=== PATIENT | female | born 1990 | race African-American/Black ===

== ENCOUNTER 2019-08-26 19:06 | Emergency (ER) | payer OTHER, SELFPAY ==
[2019-08-26] VITALS (7 sets, daily range): BP systolic 96–115; BP diastolic 55–72; PULSE 68–87; RESP 13–25; TEMP 36.6; O2SAT 96–100; BMI 37.8
--- NOTE | 2019-08-26 19:18 | DI.RAD.S_ITS ---
PROCEDURE: XR CHEST 1V INDICATIONS: chest pain TECHNIQUE: One view of the chest was acquired. COMPARISON: Outside Film, CT, CT CHEST WITHOUT CONTRAST, 04/08/2019, 14:41. Outside Film, CT, CT ANGIO CHEST PE, 06/14/2019, 18:45. FINDINGS: Surgical changes and devices: None. Lungs and pleura: Bilateral reticular and groundglass infiltrates. No pleural effusions or pneumothorax. Mediastinum: Mediastinal contours appear normal. Heart size is normal. Bones and chest wall: No suspicious bony lesions. Overlying soft tissues appear unremarkable. IMPRESSION: Bilateral reticular and groundglass infiltrates. Differential diagnoses include infection such as atypical pneumonia, information such as sarcoidosis, hypersensitivity pneumonitis and noncardiogenic pulmonary edema. Recommend clinical correlation. Dictated by: Cleveland Patel M.D. on 08/26/2019 at 20:00 Approved by: Cleveland Patel M.D. on 08/26/2019 at 20:04
[2019-08-26 19:38] LABS: Add Manual Diff / Slide Review NO; Basophils Absolute Auto 100 /uL (0-100); Basophils Percent Auto 0.5 % (0-2); Eosinophils Absolute Auto 0 /uL (0-450); Hemoglobin 12.7 g/dL (12.0-16.0); Lymphocytes Absolute Auto 900 /uL (1100-4500); Lymphocytes Percent Auto 7.5 % (25-40); Mean Corpuscular HGB Conc 33.5 % (30-36); Mean Corpuscular Hemoglobin 27.5 PG (26-34); Mean Corpuscular Volume 82.2 fL (80-100); Monocytes Absolute Auto 400 /uL (0-900); Monocytes Percent Auto 3.1 % (3-14); Neutrophils Absolute Auto 10300 /uL (1500-7000); Neutrophils Percent Auto 88.9 % (50-75); Platelet Count 312 X10^3/uL (150-400); Red Blood Cell Count 4.63 X10^6/uL (4.0-5.2); Red Cell Distribution Width 15.8 % (11.6-14.8); White Blood Cell Count 11.6 X10^3/uL (4.5-11.0)
[2019-08-26 19:45] LABS: INR 1.1 (0.9-1.3); Prothrombin Time 12.2 SECONDS (10.1-12.7)
[2019-08-26 19:48] LABS: PTT Partial Thromboplastin Tim 28 SECONDS (26.4-36.2)
[2019-08-26 19:56] LABS: Alanine Aminotransferase 30 IU/L (<35); Albumin 4.2 g/dL (3.5-5.0); Albumin Globulin Ratio 1.1 (1.0-2.8); Alkaline Phosphatase 54 U/L (38-126); Aspartate Aminotransferase 28 IU/L (14-36); BUN Creatinine Ratio 18.3 (6-22); Bilirubin Total 0.3 mg/dL (0.2-1.3); Blood Urea Nitrogen 22 mg/dL (7-17); Calcium 9.8 mg/dL (8.4-10.2); Carbon Dioxide 27 mmol/L (22-32); Chloride 101 mmol/L (98-107); Creatine Kinase 46 U/L (30-135); Estimated Glomerular Filt Rate 52.7 mL/min (>60); Globulin 3.8 g/dL (1.7-4.1); Glucose 113 mg/dL (70-100); HEMOLYSIS < 15 (0-50); Lipase 171 U/L (23-300); Potassium 4.7 mmol/L (3.4-5.1); Sodium 137 mmol/L (137-145)
[2019-08-26 20:07] LABS: Troponin I < 0.012 ng/mL (0.01-0.034)
--- NOTE | 2019-08-26 20:24 | ED.CHESTPAIN ---
HPI - Chest Pain General Chief Complaint: Chest Pain Stated Complaint: states had a abnormal EKG Time Seen by Provider: 08/26/19 19:25 Source: patient Mode of arrival: Ambulatory Limitations: no limitations History of Present Illness HPI narrative: 28-year-old female. Is a known history of chronic lung disease to include what she states is an interstitial pulmonary fibrosis. Is under the care of pulmonology. Is scheduled for an echocardiogram next week. Went to see her primary provider 2 days ago for left-sided chest pain. She states that it was worsening when she was up moving around. She also states she has been burping quite a bit which she states does relieve the symptoms. No change with palpation or movement of her arm. She states that when she went to her primary provider she was told that she had a ?abnormal EKG ?she was told that if her symptoms changed or worsen that she should come to the emergency department for evaluation. She states she is here today for continued symptoms she states that it has not worsened since Thursday just has not got any better. Today was the 1st day that she had arrived to the emergency department Related Data Allergies Allergy/AdvReac Type Severity Reaction Status Date / Time No Known Drug Allergies Allergy Verified 08/26/19 19:18 Review of Systems Constitutional Constitutional: Denies fever(s) and Denies headache(s) ENT Ears, Nose, Mouth, and Throat: Denies headache(s) Cardiovascular Cardiovascular: Reports chest pain Respiratory Comments: No change in baseline respiratory status Gastrointestinal Gastrointestinal: Denies abdominal pain, Denies nausea and Denies vomiting Integumentary/Breasts Skin/Breast: Denies rash Neurologic Neurologic: Denies behavioral changes and Denies headache(s) Psychiatric Psychiatric: Denies behavioral changes Hematologic/Lymphatic Hematologic/Lymphatic: Denies easy bleeding and Denies easy bruising Patient History Medical History Pulmonary fibrosis (Acute) Social History Smoking Status: Unknown if ever smoked Smoking Status: Unknown if ever smoked alcohol intake frequency: holidays/special occasions only Substance Use Type: does not use Exam Initial Vital Signs Initial Vital Signs: Vital Signs Temperature 97.9 F 08/26/19 19:18 Pulse Rate 87 08/26/19 19:18 Respiratory Rate 15 08/26/19 19:18 Blood Pressure 115/72 08/26/19 19:18 Pulse Oximetry 96 08/26/19 19:18 Const General: cooperative, healthy appearing, comfortable and well developed Limitations: mental status not altered Resp Effort & Inspection: normal respiratory effort Auscultation: clear to auscultation bilaterally Cardio Rate: regular rate Rhythm: regular rhythm GI Inspection: non-distended Palpation: soft Skin Lesions: no lesions Rashes: no rashes Neuro General: alert and awake Cognition: normal cognition Speech: speech normal Extrem General: normal to inspection and capillary refill normal Psych Appearance: grossly normal and well kempt Scores GCS Eugene coma scale eye opening: Spontaneous Malou coma scale verbal response: Orientated Malou coma scale motor response: Obey commands Eugene coma scale total score: 15 HEART Score Heart Score history: Slightly Suspicious Heart Score EKG: Non-Specific repolarization disturbance Heart Score Age: < 45 years old Heart Score risk factors: No known risk factors Heart Score troponin: < or = to normal limit Heart Score Total: 1 Course Orders Ordered: ED Orders 08/26/19 19:18 XR chest 1V Stat EKG-12 Lead Stat 08/26/19 19:30 Complete Blood Count AUTO DIFF Stat Comprehensive Metabolic Panel Stat Lipase Stat Partial Thromboplastin Time Stat Prothrombin Time INR Stat Troponin & CK Cardiac Panel Stat 08/26/19 21:46 Troponin I Stat Vital Signs Vital signs: Vital Signs - 8 hr 08/26/19 19:18 08/26/19 20:00 08/26/19 20:30 Temperature 97.9 F Pulse Rate 87 70 70 Respiratory Rate 15 18 18 Blood Pressure 115/72 Blood Pressure [Right Arm] 98/60 100/65 Pulse Oximetry 96 98 99 08/26/19 21:00 08/26/19 21:48 08/26/19 22:30 Temperature Pulse Rate 73 80 68 Respiratory Rate 25 H 18 13 Blood Pressure Blood Pressure [Right Arm] 101/55 L 100/58 L 97/57 L Pulse Oximetry 99 99 100 08/26/19 23:26 Temperature Pulse Rate 78 Respiratory Rate 19 Blood Pressure 96/61 Blood Pressure [Right Arm] Pulse Oximetry 98 MDM - Chest Pain Lab Data Attestation: I reviewed the patient's lab results. Result diagrams: 08/26/19 19:30 08/26/19 19:30 Labs: Lab Results 08/26/19 08/26/1920 Range/Units 19:30 19:30 19:30 WBC 11.6 H (4.5-11.0) X10^3/uL RBC 4.63 (4.0-5.2) X10^6/uL Hgb 12.7 (12.0-16.0) g/dL Hct 38.0 (36-46) % MCV 82.2 (80-100) fL MCH 27.5 (26-34) PG MCHC 33.5 (30-36) % RDW 15.8 H (11.6-14.8) % Plt Count 312 (150-400) X10^3/uL Neut % (Auto) 88.9 H (50-75) % Lymph % (Auto) 7.5 L (25-40) % [place] % (Auto) 3.1 (3-14) % Eos % (Auto) 0.0 L (2-4) % Baso % (Auto) 0.5 (0-2) % Neut # (Auto) 11111 H (1007-3508) /uL Lymph # (Auto) 900 L (9750-2692) /uL [place] # (Auto) 400 (0-900) /uL Eos # (Auto) 0 (0-450) /uL Baso # (Auto) 100 (0-100) /uL PT 12.2 (10.1-12.7) SECONDS INR 1.1 (0.9-1.3) APTT 28 (26.4-36.2) SECONDS Sodium 137 (137-145) mmol/L Potassium 4.7 (3.4-5.1) mmol/L Chloride 101 (98-107) mmol/L Carbon Dioxide 27 (22-32) mmol/L BUN 22 H (7-17) mg/dL Creatinine 1.20 H (0.52-1.04) mg/dL Estimated GFR 52.7 L (>60) mL/min BUN/Creatinine Ratio 18.3 (6-22) Glucose 113 H (70-100) mg/dL Calcium 9.8 (8.4-10.2) mg/dL Total Bilirubin 0.3 (0.2-1.3) mg/dL AST 28 (14-36) IU/L ALT 30 (<35) IU/L Alkaline Phosphatase 54 (38-126) U/L Total Creatine Kinase 46 (30-135) U/L CK-MB (CK-2) TNP CK-MB (CK-2) Rel Index TNP Troponin I < 0.012 (0.01-0.034) ng/mL Total Protein 8.0 (6.3-8.2) g/dL Albumin 4.2 (3.5-5.0) g/dL Globulin 3.8 (1.7-4.1) g/dL Albumin/Globulin Ratio 1.1 (1.0-2.8) Lipase 171 (23-300) U/L 08/26/19 Range/Units 21:46 WBC (4.5-11.0) X10^3/uL RBC (4.0-5.2) X10^6/uL Hgb (12.0-16.0) g/dL Hct (36-46) % MCV (80-100) fL MCH (26-34) PG MCHC (30-36) % RDW (11.6-14.8) % Plt Count (150-400) X10^3/uL Neut % (Auto) (50-75) % Lymph % (Auto) (25-40) % [place] % (Auto) (3-14) % Eos % (Auto) (2-4) % Baso % (Auto) (0-2) % Neut # (Auto) (6320-6906) /uL Lymph # (Auto) (2664-7052) /uL [place] # (Auto) (0-900) /uL Eos # (Auto) (0-450) /uL Baso # (Auto) (0-100) /uL PT (10.1-12.7) SECONDS INR (0.9-1.3) APTT (26.4-36.2) SECONDS Sodium (137-145) mmol/L Potassium (3.4-5.1) mmol/L Chloride (98-107) mmol/L Carbon Dioxide (22-32) mmol/L BUN (7-17) mg/dL Creatinine (0.52-1.04) mg/dL Estimated GFR (>60) mL/min BUN/Creatinine Ratio (6-22) Glucose (70-100) mg/dL Calcium (8.4-10.2) mg/dL Total Bilirubin (0.2-1.3) mg/dL AST (14-36) IU/L ALT (<35) IU/L Alkaline Phosphatase (38-126) U/L Total Creatine Kinase (30-135) U/L CK-MB (CK-2) CK-MB (CK-2) Rel Index Troponin I < 0.012 (0.01-0.034) ng/mL Total Protein (6.3-8.2) g/dL Albumin (3.5-5.0) g/dL Globulin (1.7-4.1) g/dL Albumin/Globulin Ratio (1.0-2.8) Lipase (23-300) U/L Imaging Data Chest x-ray: Radiologist's Impression: [address] [id number] XRay Report Signed Patient: Elena Yeung#: [id number] : 1990Acct:[id number] Age/Sex: 28 / FDate of Service: 08/26/19 Loc: ED Accession Number: [id number] Procedure: XR chest 1V Ordering Provider: Juan Antonio Chris D.O. PROCEDURE: XR CHEST 1V INDICATIONS: chest pain TECHNIQUE: One view of the chest was acquired. COMPARISON: Outside Film, CT, CT CHEST WITHOUT CONTRAST, 04/08/2019, 14:41. Outside Film, CT, CT ANGIO CHEST PE, 06/14/2019, 18:45. FINDINGS: Surgical changes and devices: None. Lungs and pleura: Bilateral reticular and groundglass infiltrates. No pleural effusions or pneumothorax. Mediastinum: Mediastinal contours appear normal. Heart size is normal. Bones and chest wall: No suspicious bony lesions. Overlying soft tissues appear unremarkable. IMPRESSION: Bilateral reticular and groundglass infiltrates. Differential diagnoses include infection such as atypical pneumonia, information such as sarcoidosis, hypersensitivity pneumonitis and noncardiogenic pulmonary edema. Recommend clinical correlation. Dictated by: Cleveland Patel M.D. on 08/26/2019 at 20:00 Approved by: Cleveland Patel M.D. on 08/26/2019 at 20:04 ECG Data Attestation: I personally reviewed and interpreted this ECG as follows: Prior ECG tracings: not available for review Interpretation: Sinus rhythm Ventricular rate is 76 Normal QRS Normal axis No ST T wave changes MDM Narrative Medical decision making narrative: I do not have the EKG from her prior visit several days ago to compare. Today's EKG relatively unremarkable except for potential voltage criteria for LVH. Her chest x-ray shows no new changes. I have low suspicion for pneumonia. Troponins negative x2. She has an appointment next week for an echocardiogram. Due instructed to keep this appointment. She was given return precautions and follow-up instructions. She expressed understanding and agreement. Discharge Plan Departure Patient Disposition: Home Clinical Impression: Atypical chest pain Discharge Date/Time: 08/26/19 23:28 Instructions: DI for Atypical Chest Pain Activity Restrictions/Additional Instructions: Recommend that you keep all of your scheduled medical appointments. Continue all of your medications as directed. Return to the emergency department for any new or worsening symptoms
[2019-08-26 22:13] LABS: Troponin I < 0.012 ng/mL (0.01-0.034)
== END 2019-08-26 23:28 | disposition home or self-care (01) ==
PROVIDERS: Emergency Provider Emergency Medicine
DX: R07.89 Other chest pain (principal); R79.89 Other specified abnormal findings of blood chemistry
CPT/HCPCS: 36415; 71045; 80053; 82550; 83690; 84484; 85025; 85610; 85730; 93005; 99284